=== PATIENT | female | born 1990 | race Caucasian/White ===

== ENCOUNTER 2018-06-11 14:35 | Outpatient (CLI) | payer OTHER | END 2018-06-11 14:36 | disposition home or self-care (01) | LOC: ULT 14:35 | PROVIDERS: ATTEND Emergency Medicine | DX: Z00.5 Encounter for examination of potential donor of organ and tissue (principal); I07.1 Rheumatic tricuspid insufficiency | CPT/HCPCS: 93306 ==

== ENCOUNTER 2019-06-13 17:01 | Emergency (ER) | payer OTHER ==
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
== END 2019-06-13 18:58 | disposition home or self-care (01) ==
LOC: ERS 17:01
DX: O9A.212 Injury, poisoning and certain other consequences of external causes complicating pregnancy, second trimester (principal); S20.211A Contusion of right front wall of thorax, initial encounter; O99.342 Other mental disorders complicating pregnancy, second trimester; F41.9 Anxiety disorder, unspecified; F32.9 Major depressive disorder, single episode, unspecified; Z87.891 Personal history of nicotine dependence; Z3A.15 15 weeks gestation of pregnancy; W51.XXXA Accidental striking against or bumped into by another person, initial encounter
CPT/HCPCS: 76815

== ENCOUNTER 2019-12-09 19:15 | Inpatient (IN) | payer OTHER ==
[2019-12-09] MEDS ORDERED: Carboprost 250 MCG/ML AMP IM PRN (20:08)
[2019-12-09] MEDS ORDERED: HYDROcodone/Acetaminophen 5/325 mg Tablet PO PRN (20:08)
[2019-12-09] MEDS ORDERED: NS w/ Oxytocin 10 units 500 ML IV SCH (20:08)
[2019-12-09] MEDS ORDERED: Lidocaine 1% (PF) 30 ML VIAL SC PRN (20:08)
[2019-12-09] MEDS ORDERED: Diphenoxylate HCl/Atropine Tablet PO PRN ×2 (20:08)
[2019-12-09] MEDS ORDERED: Acetaminophen 500 MG TAB PO PRN (20:08)
[2019-12-09] MEDS ORDERED: Ondansetron PF 4 MG/2 ML Vial IVP PRN (20:08)
[2019-12-09] MEDS ORDERED: Promethazine HCl 25 MG/ML VIAL IM PRN (20:08)
[2019-12-09] MEDS ORDERED: Ibuprofen 800 MG TAB PO PRN (20:08)
[2019-12-09] MEDS ORDERED: Misoprostol 200 MCG TAB PR PRN (20:08)
[2019-12-09] MEDS ORDERED: hydrALAZINE 20 MG/ML VIAL SLOW IVP PRN (20:08)
[2019-12-09] MEDS ORDERED: NS / Oxytocin 40 units/1000ml 1,000 ML IV PRN (20:08)
[2019-12-09 21:06] VITALS: BMI 38.3
[2019-12-09] MEDS: Lactated Ringer's 1,000 ML IV SCH (21:30)
[2019-12-09 21:32] LABS: Mean Corpuscular HGB CONC 34.1 g/dL (32.0-36.0); Mean Corpuscular Volume 87.9 fL (78.0-98.0); Mean Platelet Volume 7.7 fL (7.4-10.4); Platelet Count 263 thou/uL (130-400); RBC Distribution Width 12.4 % (11.5-14.5); Red Blood Cell (RBC) Count 4.33 mill/uL (4.20-5.40); White Blood Cell (WBC) Count 10.9 thou/uL (4.8-10.8)
[2019-12-09 22:09] LABS: Syphilis Antibody Nonreactive (Nonreactive); Syphilis Antibody Index 0.04 S/CO (<1.00 Non-Reactive)
[2019-12-09] MEDS: Misoprostol 100 MCG TAB VAG SCH (22:10)
[2019-12-09 23:42] LABS: HBSAg Index 0.19 S/CO (0-0.99); Hep B Surf Ag Non-Reactive S/CO (NonReactive)
[2019-12-10] MEDS ORDERED: Zolpidem Tartrate 5 MG TAB PO ONE (01:00)
[2019-12-10] MEDS ORDERED: Zolpidem Tartrate 5 MG TAB ONE (01:02)
[2019-12-10] MEDS: Misoprostol 100 MCG TAB VAG SCH ×4 (01:20→22:32)
[2019-12-10] MEDS: Butorphanol Tartrate 1 MG/ML VIAL SLOW IVP PRN ×2 (04:50→07:19)
[2019-12-10] MEDS: Lactated Ringer's 1,000 ML IV SCH ×3 (06:15→22:32)
[2019-12-10] MEDS ORDERED: Fentanyl 4 mcg/Bup 0.1% Cadd 100 ML ONE (07:42)
[2019-12-10] MEDS ORDERED: Terbutaline Sulfate 1 MG/ML VIAL ONE (09:53)
[2019-12-10] MEDS ORDERED: ePHEDrine/0.9% NaCl/PF SYRINGE 50 mg/10 ml SLOW IVP PRN (10:02)
[2019-12-10] MEDS ORDERED: diphenhydrAMINE 50 MG/ML VIAL IVP PRN ×2 (10:02→11:56)
[2019-12-10] MEDS ORDERED: Ondansetron PF 4 MG/2 ML Vial IVP PRN ×2 (10:02→11:56)
[2019-12-10] MEDS ORDERED: Promethazine HCl 25 MG/ML VIAL IM PRN ×2 (10:02→11:56)
[2019-12-10] MEDS ORDERED: Lactated Ringer's 500 ML IV PRN (10:02)
[2019-12-10] MEDS ORDERED: Naloxone HCl 0.4 mg/ml Vial IVP PRN ×3 (10:02→11:56)
[2019-12-10] MEDS ORDERED: Acetaminophen 325 MG TAB PO PRN (10:02)
[2019-12-10] MEDS ORDERED: Fentanyl 4 mcg/Bupivacaine 0.1% Cassette 100 ML EPIDURAL SCH (10:15)
[2019-12-10] MEDS ORDERED: Communication Order-Pharmacy FS SCH ×2 (10:15→12:00)
[2019-12-10] MEDS ORDERED: Lidocaine 2% 10 ML INJ ONE (11:28)
[2019-12-10] MEDS ORDERED: Bicitra 30 ML UDCUP ONE (11:28)
[2019-12-10] MEDS ORDERED: PHENYLEPHRINE-NS 100 MCG/ML 10 ML SYRINGE ONE (11:29)
[2019-12-10] MEDS ORDERED: Oxytocin 10 UNITS/ML VIAL ONE (11:29)
[2019-12-10] MEDS ORDERED: Fentanyl 100 MCG/2 ML VIAL ONE (11:33)
[2019-12-10] MEDS ORDERED: MORPHINE 5 MG/10 ML PF VIAL ONE (11:47)
[2019-12-10] MEDS ORDERED: Ketorolac Tromethamine 30 MG/ML VIAL IVP PRN (11:56)
[2019-12-10] MEDS ORDERED: Meperidine HCl/PF 25 MG/ML VIAL SLOW IVP PRN (11:56)
[2019-12-10] MEDS ORDERED: Ondansetron HCl/PF 4 MG/2 ML Vial IVP PRN (11:56)
[2019-12-10] MEDS ORDERED: Naloxone HCl 0.4 mg/ml Vial IV PRN (11:56)
[2019-12-10 12:00] LABS: Actual Bicarbonate (HCO3a) 22.5 mEq/L (22-28); Base Excess (BEa) -8.8 mEq/L (-2.0 to +3.0)
[2019-12-10] MEDS ORDERED: Ketorolac Tromethamine 30 MG/ML VIAL IVP SCH (12:00)
[2019-12-10 12:02] LABS: Actual Bicarbonate (HCO3v) 22 mEq/L (22-28); Base Excess -8.2 mEq/L (-2.0 to +3.0); pH (Cord, venous) 7.17 (7.32-7.43)
[2019-12-10] MEDS ORDERED: hydrALAZINE 20 MG/ML VIAL SLOW IVP PRN (12:13)
[2019-12-10] MEDS ORDERED: Adacel (T-DAP) 0.5 ML SYRINGE IM ONE (12:13)
[2019-12-10] MEDS ORDERED: HYDROcodone/Acetaminophen 5/325 mg Tablet PO PRN (12:13)
[2019-12-10] MEDS ORDERED: diphenhydrAMINE 25 MG CAP PO PRN (12:13)
[2019-12-10] MEDS ORDERED: Bisacodyl 10 MG SUPP PR PRN (12:13)
[2019-12-10] MEDS ORDERED: Lanolin Ointment 7 GM TUBE TOP PRN (12:13)
[2019-12-10] MEDS: Ibuprofen 800 MG TAB PO SCH ×2 (15:27→22:33)
--- NOTE | 2019-12-10 17:52 | OP ---
DATE OF PROCEDURE: 12/10/2019 PREOPERATIVE DIAGNOSES: 1. A 29-year-old white female, G1, P0, at 40 weeks and 5 days' gestation, status post labor induction for postdates. 2. History of donor kidney on the left side. 3. Non-reassuring heart rate tracing at anterior lip and not tolerating pushing with recurrent late decelerations. POSTOPERATIVE DIAGNOSES: 1. A 29-year-old white female, G1, P0, at 40 weeks and 5 days' gestation, status post labor induction for postdates. 2. History of donor kidney on the left side. 3. Non-reassuring heart rate tracing at anterior lip and not tolerating pushing with recurrent late decelerations. PROCEDURE PERFORMED: Primary low transverse section without extensions. TEAM [employer] DRIVER SURGEON: Carina Hernández MD ANESTHESIA: Epidural. ESTIMATED BLOOD LOSS: 300 mL. COUNTS: Correct x2. ANTIBIOTICS: 2 g Ancef on-call to OR. FINDINGS: 1. Vigorous male infant, vertex presentation, clear amniotic fluid noted. Apgars were pending at time of this dictation along with weight. 2. Normal-appearing uterus, tubes, and ovaries. 3. Clear urine present in Yanes catheter postprocedure. 4. There was somewhat of a body cord wrapped around the back and at the baby's right hand. DISPOSITION: To recovery room in stable. DESCRIPTION OF PROCEDURE: The patient was taken back urgently to the OR suite. She was prepped in usual fashion, and a Yanes catheter was already in place along with PlexiPulses. A Pfannenstiel incision was made in the lower abdomen was carried down the fascia. Fascia was nicked in midline. Fascial incision was extended bilaterally with curved Silva scissors. The rectus fascia was then dissected superiorly and inferiorly off the rectus muscle bellies. The rectus muscle belly was divided in midline. Peritoneal cavity was entered, and Nishant O retractor was placed. A 2 cm hysterotomy incision was made in the lower uterine segment above the bladder reflection. This extended via finger fractionation. The baby was delivered in the vertex presentation. Mouth and nares were bulb suctioned on the abdomen. The cord was doubly clamped and cut, handed to the home health caregiver, Dr. Mills, who was in attendance. Usual cord blood along with cord gas was obtained. Placenta was manually extracted. Uterus was externalized and curetted of any remaining placental fragments with a dry laparotomy sponge. Uterus was returned back into the abdomen. The hysterotomy incision was then closed in a running locking #1 Monocryl suture with good hemostasis confirmation. The pelvis again was irrigated and suctioned again, the Nishant O retractor had been removed, and the hysterotomy incision again was inspected, and hemostasis was confirmed. The rectus muscle bellies were inspected, any areas of oozing were made hemostatic with Bovie cautery. The rectus fascia was then closed in a running continuous fashion with 0 PDS suture x2. Subcutaneous tissue was noted to be hemostatic prior to cauterization of any bleeders. The skin was then closed with gurvinder. The surgery was terminated. No anesthetic or surgical complications. Job ID: [id number]
[2019-12-10] MEDS: Docusate Calcium (SURFAK) 240 MG CAP PO SCH (22:33)
[2019-12-11] MEDS: Lactated Ringer's 1,000 ML IV SCH ×3 (00:25→21:45)
[2019-12-11] MEDS: Misoprostol 100 MCG TAB VAG SCH ×7 (02:04→21:44)
[2019-12-11] MEDS: Ibuprofen 800 MG TAB PO SCH ×3 (03:30→21:44)
[2019-12-11 06:10] LABS: Hemoglobin 10.9 g/dL (12.0-16.0); Mean Corpuscular HGB CONC 35.4 g/dL (32.0-36.0); Mean Corpuscular Hemoglobin 31.2 pg (27.0-31.0); Mean Corpuscular Volume 88.4 fL (78.0-98.0); Mean Platelet Volume 7.5 fL (7.4-10.4); Platelet Count 220 thou/uL (130-400); RBC Distribution Width 12.3 % (11.5-14.5); Red Blood Cell (RBC) Count 3.48 mill/uL (4.20-5.40); White Blood Cell (WBC) Count 12.2 thou/uL (4.8-10.8)
--- NOTE | 2019-12-11 07:52 | PDOC.PP ---
Post Progress Note Post Day #: 1 PO intake tolerated: yes Flatus: yes Ambulation: yes Vital Signs (12 hours) Temp Pulse Resp BP Pulse Ox 12/11/19 03:31 98.5 F 82 18 124/76 12/11/19 00:21 99.0 F 102 H 18 118/61 98 Weight Weight 203 lb Result Diagrams: 12/11/19 05:50 Additional Labs: Post Labs Blood Type A POSITIVE 12/09/19 20:43 Hep Bs Antigen Non-Reactive S/CO (NonReactive) 12/09/19 20:43 - Assessment/Plan Post op day 1 from primary c section for non reassuring heart rate tracing. progressing well. routine care..
--- NOTE | 2019-12-11 07:56 | OP ---
DATE OF PROCEDURE: 12/09/2019 ADDENDUM: I was present and scrubbed to assist the uncomplicated primary low-transverse with Dr. Monica Rush. Please see her note for full details. Job ID: [id number]
[2019-12-11] MEDS: Simethicone Chewable 80 MG TAB PO PRN (09:09)
[2019-12-11] MEDS: Docusate Calcium (SURFAK) 240 MG CAP PO SCH ×2 (09:09→21:44)
[2019-12-11] MEDS: HYDROcodone/Acetaminophen 5/325 mg Tablet PO PRN ×2 (11:12→18:06)
[2019-12-12] MEDS: Misoprostol 100 MCG TAB VAG SCH ×4 (02:17→07:52)
[2019-12-12] MEDS: HYDROcodone/Acetaminophen 5/325 mg Tablet PO PRN ×4 (02:20→17:14)
[2019-12-12] MEDS: Ibuprofen 800 MG TAB PO SCH ×3 (05:17→21:45)
[2019-12-12] MEDS: Lactated Ringer's 1,000 ML IV SCH ×3 (05:39→07:52)
--- NOTE | 2019-12-12 08:15 | PDOC.PP ---
Post Progress Note Post Day #: 2 PO intake tolerated: yes Flatus: yes Ambulation: yes Vital Signs (12 hours) Temp Pulse Resp BP Pulse Ox 12/12/19 05:10 98.5 F 100 20 135/65 12/12/19 00:00 98.2 F 67 18 120/69 12/11/19 21:45 97 Weight Weight 203 lb Result Diagrams: 12/11/19 05:50 Additional Labs: Post Labs Blood Type A POSITIVE 12/09/19 20:43 Hep Bs Antigen Non-Reactive S/CO (NonReactive) 12/09/19 20:43 - Assessment/Plan Post op day 2 ..Recovering well. D/c in Am. baby on the lights.
[2019-12-12] MEDS: Docusate Calcium (SURFAK) 240 MG CAP PO SCH ×2 (08:42→21:45)
[2019-12-12] MEDS: Simethicone Chewable 80 MG TAB PO PRN ×2 (08:42→17:14)
[2019-12-13] MEDS: Misoprostol 100 MCG TAB VAG SCH (05:05)
[2019-12-13] MEDS: Lactated Ringer's 1,000 ML IV SCH (05:06)
[2019-12-13] MEDS: Ibuprofen 800 MG TAB PO SCH ×2 (05:57→08:09)
[2019-12-13] MEDS: HYDROcodone/Acetaminophen 5/325 mg Tablet PO PRN (08:09)
[2019-12-13 08:30] VITALS: BP 144/83; TEMP 98.3
--- NOTE | 2019-12-13 08:31 | PDOC.PP ---
Post Progress Note Post Day #: 3 PO intake tolerated: yes Flatus: yes Ambulation: yes Vital Signs (12 hours) Temp Pulse Resp BP Pulse Ox 12/12/19 23:45 98.5 F 87 18 120/58 L 12/12/19 21:45 98 Weight Weight 203 lb Result Diagrams: 12/11/19 05:50 Additional Labs: Post Labs Blood Type A POSITIVE 12/09/19 20:43 Hep Bs Antigen Non-Reactive S/CO (NonReactive) 12/09/19 20:43 - Assessment/Plan Doing well post op day 3..Ready to go home. F/u post op day 7 for staple removal and 6 weeks.
[2019-12-13] MEDS: Docusate Calcium (SURFAK) 240 MG CAP PO SCH (09:29)
== END 2019-12-13 17:30 | disposition home or self-care (01) | DRG 788 ==
LOC: L&D 19:43 → 3SW 12-10 14:02
PROVIDERS: ADMIT Obstetrics & Gynecology; ATTEND Obstetrics & Gynecology
PROC: 10D00Z1 Extraction of Products of Conception, Low, Open Approach (ICD-10-PCS; principal; 2019-12-10)
DX: O76 Abnormality in fetal heart rate and rhythm complicating labor and delivery (principal); O48.0 Post-term pregnancy; Z3A.40 40 weeks gestation of pregnancy; Z37.0 Single live birth; Z52.4 Kidney donor; Z90.5 Acquired absence of kidney; O75.89 Other specified complications of labor and delivery
CPT/HCPCS: 36415; 36416; 51702; 82805; 85027; 86780; 86850; 86900; 86901; 87340; J0595; J0690; J1885; J2001; J2274; J2405; J2590; J3010; J3105

== ENCOUNTER 2021-08-05 11:27 | Emergency (ER) | payer BC, OTHER ==
[2021-08-05] MEDS ORDERED: Metoclopramide HCl 10 MG/2 ML VIAL ONE (12:26)
[2021-08-05 12:39] LABS: #Basophils 0.1 thou/uL (0.0-0.2); #Eosinphils 0.2 thou/uL (0.0-0.7); #Lymphocytes 2.3 thou/uL (1.20-3.40); #Monocytes 0.5 thou/uL (0.11-0.59); #Neutrophils 3.8 thou/uL (1.40-6.50); %Basophils 0.8 % (0.0-1.0); %Lymphocytes 33.9 % (21.0-51.0); %Monocytes 6.8 % (0.0-10.0); %Neutrophils 55.6 % (42.0-75.0); Hemoglobin 14.3 g/dL (12.0-16.0); Mean Corpuscular HGB CONC 33.9 g/dL (32.0-36.0); Mean Corpuscular Hemoglobin 29.7 pg (27.0-31.0); Mean Corpuscular Volume 87.7 fL (78.0-98.0); Platelet Count 297 thou/uL (130-400); RBC Distribution Width 11.3 % (11.5-14.5); Red Blood Cell (RBC) Count 4.81 mill/uL (4.20-5.40); White Blood Cell (WBC) Count 6.8 thou/uL (4.8-10.8)
[2021-08-05 12:44] LABS: BHCG - Serum Negative (NEGATIVE); Pregs Control Background? CLEAR/WHITE (CLR/WHITE); Pregs Control Bar Appear? YES (CONTROL BAR)
[2021-08-05 13:30] LABS: ALT (SGPT) 11 U/L (8-55); AST (SGOT) 17 U/L (5-34); Albumin 4.2 g/dL (3.5-5.0); Alkaline Phosphatase 45 U/L (40-110); Anion Gap 11 mmol/L (10-20); BUN (Urea Nitrogen) 11 mg/dL (7.0-18.7); Bilirubin, Total 0.8 mg/dL (0.2-1.2); Calc. Creatinine Clearance 0 mL/min (70-130); Calcium 9.1 mg/dL (7.8-10.44); Carbon Dioxide 24 mmol/L (22-29); Chloride 107 mmol/L (98-107); Globulin 2.9 g/dL (2.4-3.5); Glucose 86 mg/dL (70-105); Potassium 4.3 mmol/L (3.5-5.1); Protein, Total 7.1 g/dL (6.0-8.3); Sodium 138 mmol/L (136-145)
[2021-08-05 13:33] LABS: Bilirubin Negative (Negative); Blood, Urine Negative (Negative); Clarity Clear (Clear); Glucose, Urine (Dipstick) Normal (Negative); Ketone, Urine Negative (Negative); Leukocyte Negative Leu/uL (Negative); Nitrite Negative (Negative); Protein, Urine (Dipstick) Negative (Neg-Trace); Specific Gravity, Urine 1.004 (1.002-1.036); Urobilinogen Normal mg/dL (Less than 2); pH, Urine 6.5 (5.0-9.0)
== END 2021-08-05 14:32 | disposition home or self-care (01) ==
LOC: ERS 11:27
DX: R42 Dizziness and giddiness (principal); R11.0 Nausea; Z87.891 Personal history of nicotine dependence
CPT/HCPCS: 36415; 71045; 80053; 81003; 84703; 85025; 87086; 93005; 96374; J2765

== ENCOUNTER 2021-11-06 18:15 | Emergency (ER) | payer BC, OTHER ==
[2021-11-06] MEDS ORDERED: Ketorolac Tromethamine 30 MG/ML VIAL ONE (19:26)
== END 2021-11-06 20:20 | disposition home or self-care (01) ==
LOC: ERS 18:15
DX: M62.830 Muscle spasm of back (principal); Z87.891 Personal history of nicotine dependence
CPT/HCPCS: 99283; J1885

== ENCOUNTER 2022-11-23 17:46 | Emergency (ER) | payer BC, OTHER ==
[2022-11-23 18:16] LABS: #Eosinphils 0.1 thou/uL (0.0-0.7); #Lymphocytes 1.8 thou/uL (1.20-3.40); #Monocytes 0.6 thou/uL (0.11-0.59); #Neutrophils 12.1 thou/uL (1.40-6.50); %Basophils 0.3 % (0.0-1.0); %Eosinophils 0.4 % (0.0-10.0); %Lymphocytes 12.3 % (21.0-51.0); %Monocytes 4.3 % (0.0-10.0); %Neutrophils 82.6 % (42.0-75.0); Hemoglobin 14.2 g/dL (12.0-16.0); Mean Corpuscular HGB CONC 33.4 g/dL (32.0-36.0); Mean Corpuscular Hemoglobin 29.7 pg (27.0-31.0); Mean Corpuscular Volume 88.9 fl (78.0-98.0); Mean Platelet Volume 6.9 fL (7.4-10.4); Platelet Count 316 10x3/uL (130-400); RBC Distribution Width 11.8 % (11.5-14.5); White Blood Cell (WBC) Count 14.6 10x3/uL (4.8-10.8)
[2022-11-23 18:38] LABS: ALT (SGPT) 10 U/L (8-55); AST (SGOT) 13 U/L (5-34); Alkaline Phosphatase 49 U/L (40-110); Anion Gap 11 mmol/L (10-20); BUN (Urea Nitrogen) 9 mg/dL (7.0-18.7); Bilirubin, Total 1.8 mg/dL (0.2-1.2); Calc. Creatinine Clearance 0 mL/min (70-130); Calcium 9.1 mg/dL (7.8-10.44); Carbon Dioxide 26 mmol/L (22-29); Chloride 103 mmol/L (98-107); Estimated GFR 97; Glucose 114 mg/dL (70-105); Sodium 136 mmol/L (136-145)
[2022-11-23] MEDS ORDERED: Morphine 4 MG/ML VIAL ONE (19:43)
[2022-11-23] MEDS ORDERED: Piperacillin/Tazobactam 3.375 GM VIAL ONE (19:44)
[2022-11-23] MEDS ORDERED: Acetaminophen 500 MG TAB ONE ×2 (19:44→20:05)
[2022-11-23] MEDS ORDERED: Vancomycin 1 GM/200 ML (FROZEN) BAG ONE (19:44)
[2022-11-23] MEDS ORDERED: Lidocaine 1% w/Epinephrine 1:100K 20 ML VIAL ONE (19:48)
[2022-11-23] MEDS ORDERED: Boostrix 0.5 ML (Tdap) VIAL (>/=7 yrs of age) ONE (20:10)
[2022-11-23 20:18] LABS: INR-International Normal Ratio 1.1; Prothrombin Time 14.5 sec (12.0-14.7)
== END 2022-11-23 20:37 | disposition home or self-care (01) ==
LOC: ERS 17:46
DX: L02.212 Cutaneous abscess of back [any part, except buttock and flank] (principal); D72.829 Elevated white blood cell count, unspecified; Z23 Encounter for immunization
CPT/HCPCS: 36415; 80053; 83605; 85025; 85610; 85730; 87040; 90471; 90715; J2270; J2543; J3370-JW

== ENCOUNTER 2022-11-29 12:54 | Emergency (ER) | payer OTHER ==
[2022-11-29] MEDS ORDERED: Lidocaine 1% PF 5 ML VIAL ONE (14:11)
[2022-11-29] MEDS ORDERED: Diazepam 5 MG TAB ONE (14:12)
== END 2022-11-29 15:53 | disposition home or self-care (01) ==
LOC: ERS 12:54
DX: L02.212 Cutaneous abscess of back [any part, except buttock and flank] (principal)
CPT/HCPCS: 10060